=== PATIENT | female | born 1975 | race Caucasian/White ===

== ENCOUNTER 2019-05-05 14:15 | Emergency (ER) | payer SELFPAY ==
[~2019-05-05] VITALS: Ht 157.5 cm; Wt 54.4 kg
[2019-05-05 14:14] VITALS: BP 111/71
--- NOTE | 2019-05-05 14:26 | Emergency Room Report ---
History of Present Illness General Chief Complaint: Fever Source: Patient Present Illness HPI Disclaimer: Please note that this report is being documented using [employer] technology. This can lead to erroneous entry secondary to incorrect interpretation by the dictating instrument. HPI: 44-year-old female with no medical history resents for evaluation of subjective fevers. She states she has felt warm over the past 3 to 4 days. Has no objective temperature readings. Has been taking Tylenol and Motrin intermittently. Last dose of Tylenol approximately 1.5 hours ago. She denies any sore throat, nasal congestion, cough, dyspnea, chest pain, tightness, nausea , vomiting, diarrhea, rash. Denies chills, changes in his sleep patterns, changes in eating habits. No known sick contacts. No travel reported. Did not receive a flu shot this year. PMH: Denies PSH: Denies Allergies: Penicillin Social Hx: Denies COVID-19 risk:Contact w/high r: No COVID-19 risk:Travel to affect: No Has patient experienced ibarra: No Allergies: Coded Allergies: PENICILLINS (Verified Allergy, Unknown, 05/05/19) Patient History Last Menstrual Period: 04/26/2019 Now: No Review of Systems All Other Systems: negative except mentioned in HPI Physical Exam Vital Signs Date Time Temp Pulse Resp B/P (MAP) Pulse Ox O2 Delivery O2 Flow Rate FiO2 05/05/19 14:07 98.4 05/05/19 14:07 81 18 111/71 (84) 98 Room Air General: Awake and alert, no acute distress HEENT: NC/AT. EOMI. Cardiovascular: RRR. S1 and S2 normal. No murmur appreciated Resp: Normal work of breathing. No cough, wheezing or crackles appreciated Abdomen: Abdomen is soft, nondistended. Nontender Skin: Intact. No abrasions, laceration or rash over the exposed skin MSK: Normal tone and bulk. Moving all extremities. No obvious deformity. Neuro: Awake and alert. Mentating appropriately. Medical Decision Making Diagnostic Impression: Primary Impression: Fever ER Course 44-year-old female presents for evaluation of subjective fevers. She arrives with stable vital signs, well-appearing. Differential includes but is not limited to viral syndrome, influenza, bacteremia to name a few. Patient denies any symptoms, travel, exposure to sick contacts. She did not receive a flu shot this year and is requesting a flu swab. Flu swab was performed and is negative. She does not require further testing at this time. Instructed to follow-up with her PMD and return with new or worsening symptoms. She understands and agrees with this treatment plan. Microbiology Date/Time Source Procedure Growth Status 05/05/19 14:25 Nasal Nares - Final Complete 05/05/19 14:25 Nasal Nares - Final Complete Last Vital Signs Date Time Temp Pulse Resp B/P (MAP) Pulse Ox O2 Delivery O2 Flow Rate FiO2 05/05/19 14:14 98.4 81 18 111/71 98 Room Air Disposition: HOME, SELF-CARE Condition: Stable Dario Gallegos MD May 05, 2019 14:26
[2019-05-05 15:15] VITALS: BP 111/71
== END 2019-05-05 15:15 | disposition home or self-care (01) ==
LOC: EDBD 14:15 → EMR 14:30
DX: R50.9 Fever, unspecified (principal); Z88.0 Allergy status to penicillin
CPT/HCPCS: 86710; 99282